=== PATIENT | female | born 1985 | race Caucasian/White ===

== ENCOUNTER 2016-07-14 12:49 | Emergency (ER) | payer MEDICAID ==
[~2016-07-14] VITALS: Ht 162.6 cm; Wt 68.0 kg
[~2016-07-14 12:49] MED LIST: ANUSOL-HC25 MG RECTAL; BACTRIM DS TAB1 EACH PO; CELEXA20 MG PO; COLACE100 MG PO; FLEET ENEMA118 ML RC; HYDROCODONE-APA1 TA1; IBUPROFEN 600600 M1 PO; KEFLEX500 MG PO; NORCO 5-325 TA1 EACH PO; TRINATE TABLET1 TAB PO; VALIUM5 MG
[2016-07-14] MEDS ORDERED: DIAZEPAM 10 MG10 M1 OR (12:53)
[2016-07-14] MEDS ORDERED: NORFLEX100 MG PO (13:46)
[2016-07-14] MEDS ORDERED: NAPROSYN500 MG PO (13:46)
[2016-07-14 14:04] VITALS: BP 112/68
[2016-09-06] MEDS ORDERED: TORADOL 10 MG T10 MG PO (17:00)
[2016-09-06] MEDS ORDERED: FLEXERIL PO (17:00)
== END 2016-07-14 14:05 | disposition home or self-care (01) ==
LOC: ER 12:49
DX: S39.012A Strain of muscle, fascia and tendon of lower back, initial encounter (principal); F32.9 Major depressive disorder, single episode, unspecified; Z88.5 Allergy status to narcotic agent; Z88.0 Allergy status to penicillin; Z88.8 Allergy status to other drugs, medicaments and biological substances; Z87.891 Personal history of nicotine dependence; W18.2XXA Fall in (into) shower or empty bathtub, initial encounter; Y93.9 Activity, unspecified; Y92.9 Unspecified place or not applicable; Y99.9 Unspecified external cause status

== ENCOUNTER 2018-10-02 18:44 | Emergency (ER) | payer OTHER ==
[~2018-10-02] VITALS: Ht 162.6 cm; Wt 65.8 kg
[~2018-10-02 18:44] MED LIST changes: +DIAZEPAM 10 MG10 M1 OR; +FLEXERIL PO; +NAPROSYN500 MG PO; +NORFLEX100 MG PO; +TORADOL 10 MG T10 MG PO
[2018-10-02] MEDS ORDERED: CYCLOBENZAPRINE5 MG PO (18:53)
[2018-10-02 19:03] LABS: URINE BILIRUBIN NEGATIVE (Negative); URINE BLOOD 3+ (Negative); URINE CLARITY CLEAR; URINE COLOR YELLOW; URINE GLUCOSE-RANDOM* NEGATIVE (Negative); URINE KETONES NEGATIVE (Negative); URINE LEUKOCYTES-REFLEX NEGATIVE (Negative); URINE NITRITE-REFLEX NEGATIVE (Negative); URINE PROTEIN (DIPSTICK) NEGATIVE (Negative); URINE UROBILINOGEN 0.2 E.U./dl (0.2-1.0)
[2018-10-02 19:07] LABS: ABSOLUTE NEUTROPHILS 8.6 thou/uL (1.4-8.2); BASOPHILS 0.5 % (0.0-2.0); EOSINOPHILS 0.1 % (0.0-3.0); HEMATOCRIT 40.5 % (37.0-47.0); HEMOGLOBIN 13.8 gm/dL (12.0-15.0); LYMPHOCYTES 8.4 % (24.0-44.0); MCH 29.8 pg (26.0-34.0); MCHC 34.2 g/dL (28.0-37.0); MCV 87.3 fL (80.0-100.0); MONOCYTES 5.3 % (1.0-8.0); PLATELET COUNT 232 thou/uL (150-400); POLYS 85.7 % (36.0-66.0); RBC 4.63 mil/uL (4.20-5.00); RDW 14.2 % (10.5-14.5)
[2018-10-02 19:09] LABS: BACTERIA-REFLEX None Seen /HPF (None Seen); SQUAMOUS 0-3 Few /LPF (0-3); URINE WBC-REFLEX None Seen /HPF (0-5)
[2018-10-02 19:10] LABS: CASTS None Seen /LPF (None Seen); CRYSTALS None Seen /LPF (None Seen)
[2018-10-02 19:12] LABS: CALCIUM 8.9 mg/dL (8.5-10.1); CREATININE 0.8 mg/dL (0.6-1.0); POTASSIUM 3.1 mmol/L (3.5-5.1)
[2018-10-02 19:18] LABS: ALBUMIN 4.1 g/dL (3.4-5.0); TOTAL BILIRUBIN 0.3 mg/dL (<0.1-1.0); TOTAL PROTEIN 7.7 g/dL (6.4-8.2)
[2018-10-02] MEDS ORDERED: IBUPROFEN 400400 M2 PO (21:22)
[2018-10-02 21:46] VITALS: BP 131/82
== END 2018-10-02 21:46 | disposition home or self-care (01) ==
LOC: ER 18:44
PROVIDERS: Student in an Organized Health Care Education/Training Program
DX: N83.201 Unspecified ovarian cyst, right side (principal); Z88.0 Allergy status to penicillin; Z88.5 Allergy status to narcotic agent; Z88.8 Allergy status to other drugs, medicaments and biological substances; Z87.891 Personal history of nicotine dependence